=== PATIENT | female | born 1990 | race Caucasian/White ===

== ENCOUNTER 2016-11-26 15:37 | Observation (INO) ==
[2016-11-26 16:05] LABS: Bilirubin,Urine Negative (Negative); Blood,Urine Negative (Negative); Clarity,Urine Cloudy (Clear); Color,Urine Yellow (Yellow); Glucose,Urine (UA) Normal (Normal); Ketones,Urine Negative (Negative); Leukocyte Esterase,Urine Small (Negative); Nitrite,Urine Negative (Negative); PH,Urine 6.5 pH Units (5.0-8.0); Protein,Urine Negative (Neg-Trace); Specific Gravity,Urine 1.015 (1.010-1.025); Urobilinogen,Urine Normal (Normal)
[2016-11-26 16:08] LABS: Hyaline Casts,Urine None Seen per lpf (None-Few); RBC,Urine 0-3 per hpf (0-3)
[2016-11-26 16:24] LABS: Squamous Epithelial Cell,Urine Few per lpf (None-Few); WBC,Urine 0-3 per hpf (0-3)
[2016-11-26 16:25] LABS: Bacteria,Urine Few per hpf (None-Few)
--- NOTE | 2016-12-08 08:53 | OB/GYN Progress Note ---
Date of Encounter: 12/08/16 Time of Encounter: 15:45 - Assessment and Plan (1) 36 weeks gestation of Status: Acute (2) uterine contractions Status: Acute Pt with irregular uc's and no cervical change, will d/c home. Subjective - Subjective Principal diagnosis: contractions Interval history: Pt presents with c/o uc's, no vb or lof. + gfm. Objective - Exam FHR: category 1 Auscultation: bilateral: normal Abdomen: Present: gravid Comments: Irregular uc's on tocos - Labs Labs: Abnormal lab results Urine Clarity Cloudy (Clear) A 11/26/16 15:52 Ur Leukocyte Esterase Small (Negative) H 11/26/16 15:52 Ur Culture Indicated? YES (NO) A 11/26/16 15:52
== END 2016-11-26 16:45 | disposition home or self-care (01) ==
LOC: 1NENULAB
PROVIDERS: ADMIT Obstetrics & Gynecology; ATTEND Obstetrics & Gynecology

== ENCOUNTER → 2017-01-07 19:54 | Observation (INO) ==
--- NOTE | 2017-01-07 19:23 | OB/GYN Progress Note ---
Date of Encounter: 01/07/17 Time of Encounter: 19:19 - Assessment and Plan (1) Back pain affecting in third trimester Current Visit: Yes Status: Acute Pt remains 1 cm on serial cervical exam. Discharged to home with instructions on when to return or call provider. Pt verbalizes understanding (2) NST (non-stress test) reactive Current Visit: Yes Status: Acute baseline 125 Subjective - Subjective Interval history: 38+3 complains of back pain today. Woke this morning with intermittent back pain and has been increasing intensity while working today. Pt is transverse and remains transverse today by martin. Reports good movement , denies vaginal bleeding or leaking of fluid. Currently scheuled for primary C/ S 01/23 Objective - Vital Signs Vital Signs: Intake and Output 01/07/17 01/07/17 01/07/17 07:59 15:59 23:59 Other: Weight 106.8 kg Patient Weight 01/07/17 23:59 Weight 106.8 kg - Exam FHR: auscultation normal FHR comments: baseline 125 Auscultation: bilateral: normal Abdomen: Present: normal appearance, soft, gravid Cervical dilation: 1 per RN
== END | disposition home or self-care (01) ==
LOC: 1NENULAB
PROVIDERS: ADMIT Student in an Organized Health Care Education/Training Program; ATTEND Student in an Organized Health Care Education/Training Program

== ENCOUNTER → 2017-01-14 15:57 | Observation (INO) ==
--- NOTE | 2017-01-14 14:42 | Discharge Summary ---
Date of Encounter: 01/14/17 Time of Encounter: 14:44 - Discharge Diagnosis (1) Fall Priority: Primary Status: Acute Comments: Patient arrives to labor and delivery with c/o a fall onto her bottom at home. She states that immediately after the fall she c/o stabbing vaginal pain that is still present, but not as severe as before. She states after the fall, she did not feel movement, but has felt it since arrival to the hospital. She denies headache, visual disturbances, and epigastric pain. She also denies vaginal leaking, bleeding, and discharge. Monitor fetus and uterus for 2 hours, if reactive and no contractions begin, can discharge home with labor precautions. Qualifiers: Encounter type: initial encounter Qualified Code(s): W19.XXXA - Unspecified fall, initial encounter (2) 39 weeks gestation of Priority: Primary Status: Acute Comments: Meeting appropriate milestones F/U in the office with routine care and PRN (3) Transverse lie Priority: Secondary Status: Acute Comments: Fetus palpates transverse which patient states has been the case for several weeks. She is scheduled for a primary C/S for presentation on January 23, 2017. She was initially scheduled for January 16, 2017, but changed the date due to social reasons. Patient has had education at length discussing risks associated with transverse lie. Patient verbally acknowledges these risks, but wants to keep her scheduled primary C/S date with Dr Conner on January 23. She will be discharged home today due to not making cervical change and the fetus being reactive on monitor. POC per consult with Dr Naylor. Qualifiers: Fetus number: single or unspecified fetus Qualified Code(s): O32.2XX0 - Maternal care for transverse and oblique lie, not applicable or unspecified (4) NST (non-stress test) reactive Priority: Secondary Status: Acute Comments: Category I tracing FHTs 130-140 with moderate variability and 15 x 15 accels and no decels No contractions per toco, palpation, or patient report. - Discharge Medications Home Medications: Folic Acid 1 mg PO DAILY 11/26/16 [History] Vit/Iron Fumarate/FA [ Tablet] 1 tab PO DAILY 11/26/16 [History ] Allergies/Adverse Reactions: Allergies No Known Allergies Allergy (Verified 11/26/16 15:50) Date of admission: 01/14/17 13:39 Discharging clinician: Tracy Sandoval Anticipated date of discharge: 01/14/17 - Patient Status Disposition: Home, Self-Care Condition: Good Functional capacity at discharge: independent ambulation Overall status at discharge: patient is back to baseline - Discharge Instructions Follow Up With: Jennifer Huntley CNM [Advanced Practice Nurse] - - Diet and Activity Activity: increase activity as tolerated Diet: regular diet Hospital 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 Fetus palpates transverse. No contractions per toco, palpation, or patient report. FHTs 120's with moderate variability and 15x15 accels and no decels. SVE - 1.5/50/high soft posterior - Extremities Exam Extremities exam IM: Present: normal capillary refill, normal inspection, radial pulses palpable and symetrical - Neurological Exam Neurological exam: alert, oriented X3, reflexes normal - VTE Reasons for not Prescribing Prophylaxis: Treatment not Indicated - Low risk for VTE
== END | disposition home or self-care (01) ==
LOC: 1NENULAB

== ENCOUNTER 2017-01-15 07:45 | Inpatient (IN) ==
[2017-01-23] MEDS ORDERED: Metoclopramide 10 MG/2 ML VIAL IVP PRN ×2 (10:56→16:52)
[2017-01-23] MEDS ORDERED: Naloxone 0.4 MG/ML INJ IVP PRN (10:56)
[2017-01-23] MEDS ORDERED: Famotidine 20 MG/2 ML VIAL IVP PRN (10:56)
[2017-01-23] MEDS ORDERED: CeFAZolin Pre 2,000 MG/100 ML 2,000 MG/100 ML BAG IVPB ONE (10:59)
[2017-01-23] MEDS ORDERED: Ringers Solution, Lactated 1,000 ML IVC ONE (10:59)
[2017-01-23] MEDS ORDERED: Ringers Solution, Lactated 1,000 ML IVC SCH ×2 (11:00→16:52)
[2017-01-23 11:10] LABS: Basophils % 0.2 %; Eosinophils # 0.1 K/mcL (0.0-0.6); Eosinophils % 1.1 %; Hematocrit 34.6 % (35.3-44.9); Hemoglobin 11.8 g/dL (11.5-15.4); Immature Granulocytes % 0.8 % (0-4); Lymphocytes # 1.4 K/mcL (0.6-4.6); Lymphocytes % 16.8 %; Mean Corpuscular HGB Conc 34.1 g/dL (31.6-35.5); Mean Corpuscular Hemoglobin 29.7 pg (28.0-33.3); Mean Corpuscular Volume 87.2 fL (83.0-100.0); Mean Platelet Volume 12.6 fL (9.4-12.4); Monocytes # 0.5 K/mcL (0.0-1.3); Monocytes % 6.5 %; Neutrophils # 6.2 K/mcL (1.6-8.9); Platelet Count 156 K/mcL (140-400); Red Blood Count 3.97 M/mcL (3.82-4.97); Red Cell Distribution Width 13.4 % (11.5-14.5); Segmented Neutrophils % 74.6 %
[2017-01-23] MEDS ORDERED: *HR* FentaNYL (PF) 100 MCG/2 ML VIAL ONE (11:39)
[2017-01-23] MEDS ORDERED: EPHEDrine 50 MG/ML VIAL ONE (11:39)
[2017-01-23] MEDS ORDERED: *HR* Morphine Sulfate/PF 5 MG/10 ML AMPUL ONE (11:39)
[2017-01-23] MEDS ORDERED: *HR* Oxytocin 10 UNIT/ML VIAL IM ONE (11:45)
--- NOTE | 2017-01-23 11:48 | Anesthesia Evaluation PreOp ---
Date of Encounter: 01/23/17 Time of Encounter: 11:44 - Past History Planned Operation: Cardiac History: Denies any Significant Hx Pulmonary History: Other (Inactive histplasmosis) CLIENT CARE MANAGER History: Denies Any Significant HX Other Medical History: Denies Any Significant HX Anesthesia History: No Prior Anesthetic Complications, Past Anesthesia (Nasal Fracture) : Yes () Test: Positive Alcohol Use: none Drug use: none Medications and Allergies Folic Acid 1 mg PO DAILY 11/26/16 [History] Vit/Iron Fumarate/FA [ Tablet] 1 tab PO DAILY 11/26/16 [History ] Allergies No Known Allergies Allergy (Verified 11/26/16 15:50) - Meds/Allergy Pre-op Review Medications Reviewed: Yes Allergies Reviewed: Yes Beta Blockers on Current Med List: No Anesthesia Results - Labs 01/23/17 10:47 Anesthesia Exam O2 Sat Height 1.75 m Weight 103.6 kg BP-124/72 P-88 R-16 Height: 5'9'' Weight: 228# NPO (# of Hours): > 8 hrs Pain Scale: 0 Pain Scale Used: Numeric (1 - 10) - HEENT Pupil (Motor): Pupils equal, EOMI Mallampati: I Teeth: Normal Oral Opening: Greater than 3 - CLIENT CARE MANAGER LOC: Oriented CLIENT CARE MANAGER Motor: Normal RUE, Normal LUE, Normal RLE, Normal LLE, Normal Face CLIENT CARE MANAGER Sensory: Normal: RUE, LUE, RLE, LLE, Face - Cardiac Rhythm: Regular Murmur: None JVD: No Carotid Bruit: No - Pulmonary Breath Sounds: bilateral Clear Respiratory Effort: Symmetrical Anesthesia Assess/Plan ASA Score: 2 Modified Venkatesh Scale for Level of Consciousness: Cooperative, oriented, and tranquil Anesthetic Plan: General Autologous Blood: Yes Monitoring Plan: Standard Monitors Recovery Plan: PACU
--- NOTE | 2017-01-23 12:04 | OB/GYN History & Physical ---
Date of Encounter: 01/23/17 Time of Encounter: 12:02 Assessment and Plan (1) 40 weeks gestation of Current visit: Yes Status: Acute (2) Transverse lie Current visit: Yes Status: Acute Anticipate CS with Dr. Conner Qualifiers: Fetus number: single or unspecified fetus Qualified Code(s): O32.2XX0 - Maternal care for transverse and oblique lie, not applicable or unspecified History of Present Illness Chief complaint: for transverse lie on presentation HPI: Ms. Gonzales is a 26 year old female, , 40w GA, presents for CS with Dr. Conner due to transverse lie. Patient reports movement, no vaginal discharge. Labs: Negative: GBS Not available: HIV, syph, [place], Chlam Immune: Hep B, VZV Past Med Surg Social Fam HX - Past Medical History Medical history: other Psychiatric history: no psych history - Social History Smoking Status: Never smoker Smokeless Tobacco Status: No Alcohol use: none Drug use: none - Family History Father Living Status: Still Living Hx Family Cardiac Disorders: Yes Hx Family Respiratory Disorders: No Hx Family Cancer: Yes (COLON CANCER) Hx Family GI Disorders: No Hx Family Endocrine Disorder: No Hx Family Neuromuscular Disorders: No Hx Family Neurologic Disorders: No Hx Family HEENT Disorders: No Hx Family Autoimmune Disorders: No Obstetrical History - Pregnancies : 5 Medications and Allergies Folic Acid 1 mg PO DAILY 11/26/16 [History] Vit/Iron Fumarate/FA [ Tablet] 1 tab PO DAILY 11/26/16 [History ] Allergies No Known Allergies Allergy (Verified 11/26/16 15:50) Exam - Constitutional Constitutional: well developed, well nourished - HEENT HEENT: Mucus Membranes Moist - Neck Neck exam: full ROM - Lungs Respiratory exam: CTAB - Cardiovascular Cardiovascular exam: +S1, +S2 - Abdomen Abdomen: Present: bowel sounds normal - Extremities Extremities exam: warm - Vagina Vagina: Present: normal moisture - Uterus Uterus exam: Present: enlarged Results Result Diagrams: 01/23/17 10:47 Abnormal lab results Hct 34.6 % (35.3-44.9) L 01/23/17 10:47 MPV 12.6 fL (9.4-12.4) H 01/23/17 10:47 All other labs normal.
[2017-01-23] MEDS ORDERED: *HR* HYDROmorphone (PF) 1 MG/ML SYRINGE IVP PRN ×2 (12:13→16:52)
[2017-01-23] MEDS ORDERED: Ringers Solution, Lactated 2,000 ML ONE (12:44)
--- NOTE | 2017-01-23 13:38 | OB/GYN Procedure Note ---
Section - Date of procedure: 01/23/17 Preop diagnosis: breech Procedure: section, primary low transverse Surgeon: Yung Conner Estimated blood loss (cc): 300 Anesthesiologist: Mateus Somers Drag Sawyer: Madi Cannon Anesthesia Type: Spinal section complications: none Disposition: PACU - (s) A Infant Delivery Date: 01/23/17 Delivery Time: 12:48 Presentation: breech Gender: Male Gram Weight: 4.215 kg at 1 minute: 8 at 5 minutes: 9 Placenta: spontaneous Cord: 3 umbilical vessels - Narrative Narrative: 18-year-old 2 para 1 female presents her 9+ weeks gestation presents with breech infant. This has been breech over the last several weeks we discussed with patient possible external podalic version she declined this. We did do ultrasonometer Objective section and confirmed breech. After discussed with patient options she desired primary section was wearing operative risks. Description of procedure patient was taken operating room where spinal anesthesia was administered. She is prepped draped in usual sterile fashion bladder drained of clear urine. Scalp was used to make Pfannenstiel skin incision was sharply taken down the rectus fascia. Rectus fascia was incised midline and rectus fascia was extended bilaterally. Rectus muscles were divided midline peritoneum was entered bluntly. Peritoneal incision was extended. Bladder blade was placed and bladder flap was dropped on the uterine segment. Scalpel was used to make a low transverse uterine incision [place] ruptured clear fluid incision was extended bluntly bilaterally. Infant was delivered from double footling breech presentation without difficulty. weight was found to be 9 lbs. 5 oz. with Apgars of 8 at 1 minute and 9 at 5 minutes. Cord was clamped cut and was then nurse personnel who were in attendance. Placenta was delivered manually and uterine cavity was massaged free of all residual tissue. Uterus was closed 0 Vicryl running lock stitch. Several [id number] stitches were taken to obtain hemostasis. Irrigation was performed hemostasis was confirmed. Fascia was closed 0 Vicryl running manner. After closure the fascia again irrigation was performed hemostasis was ensured. Skin edges reapproximated with 4-0 Vicryl. All sponge counts counts correct patient was taken recovery in good condition.
[2017-01-23] MEDS ORDERED: Oxytocin 20 units/ LR 1000 mL 20 UNIT/1,000 ML BAG IVC ONE (15:15)
--- NOTE | 2017-01-23 15:50 | Anesthesia Evaluation Post Op ---
Date of Encounter: 01/23/17 Time of Encounter: 15:45 - Vital Signs Vital Signs: 3 Vital Signs Time 1545 BP 119/68 Pulse 68 Resp 16 O2 Sat 100 RA - Lungs Lungs: Clear Ascult./Percussion - Airway Airway: Non-obstructed - Cardiovascular Regular Rate - Mental Status Mental Status: Alert & Oriented, Answers Appropriately - Pain Pain Scale: 6 (dilaudid given) Pain Scale used: Numeric (1 - 10) - Nausea Vomiting Nausea Vomiting: Not Present - Hydration Hydration: NPO Notes: 01/23/17 15:49 patient moving legs well - Discharge PostOp Status: Transfer Patient to floor
[2017-01-23] MEDS ORDERED: Ondansetron 4 MG/2 ML VIAL IVP PRN (16:52)
[2017-01-23] MEDS ORDERED: *HR* Morphine 2 MG/ML SYRINGE IVP PRN (16:52)
[2017-01-23] MEDS ORDERED: Simethicone 80 MG TAB.CHEW PO PRN (16:52)
[2017-01-23] MEDS ORDERED: Sennosides 8.6 MG TABLET PO PRN (16:52)
[2017-01-23] MEDS ORDERED: Rho Immune Globulin 1,500 UNIT SYRINGE IM PRN (16:52)
[2017-01-23] MEDS ORDERED: Oxytocin 20 units/ LR 1000 mL 20 UNIT/1,000 ML BAG IVC SCH (16:52)
[2017-01-24] MEDS: *HR* OxyCODONE/APAP 5/325 TABLET PO PRN ×4 (05:18→22:54)
[2017-01-24] MEDS ORDERED: *HR* Phenylephrine 10 MG/ML VIAL ONE (06:17)
[2017-01-24] MEDS: Prenatal Vit/FA 1 EACH TABLET PO SCH (08:13)
[2017-01-24 08:32] LABS: Basophils % 0.4 %; Eosinophils # 0.1 K/mcL (0.0-0.6); Eosinophils % 1.5 %; Hematocrit 29.6 % (35.3-44.9); Immature Granulocytes % 0.4 % (0-4); Lymphocytes # 1.3 K/mcL (0.6-4.6); Lymphocytes % 17.1 %; Mean Corpuscular HGB Conc 34.1 g/dL (31.6-35.5); Mean Corpuscular Hemoglobin 30.2 pg (28.0-33.3); Mean Corpuscular Volume 88.6 fL (83.0-100.0); Mean Platelet Volume 12.6 fL (9.4-12.4); Monocytes # 0.7 K/mcL (0.0-1.3); Monocytes % 8.7 %; Neutrophils # 5.6 K/mcL (1.6-8.9); Platelet Count 106 K/mcL (140-400); Red Blood Count 3.34 M/mcL (3.82-4.97); Red Cell Distribution Width 13.6 % (11.5-14.5); Segmented Neutrophils % 71.9 %
[2017-01-24 08:42] LABS: Hemoglobin 10.1 g/dL (11.5-15.4)
--- NOTE | 2017-01-24 08:55 | OB/GYN Progress Note ---
Date of Encounter: 01/24/17 Time of Encounter: 08:53 - Assessment and Plan (1) delivery delivered Current Visit: Yes Status: Acute Pt doing well. Tolerating clear liquids, ambulated, pain well managed, anticipate DC tomorrow. Did have decrease in platelets. will redraw at 1800 Subjective - Subjective Patient reports: voiding normally, pain well controlled, ambulating normally [place]: doing well Objective - Vital Signs Latest vital signs: Vital Signs Temp Pulse Resp BP Pulse Ox 01/24/17 08:20 16 01/24/17 03:10 98 F 87 16 92/52 98 01/23/17 23:43 97.5 F L 75 16 110/70 97 01/23/17 19:00 98.0 F 64 16 117/75 97 01/23/17 16:30 97.9 F 65 16 94/53 96 01/23/17 16:00 98.2 F 62 16 103/68 97 Intake and Output 01/23/17 01/24/17 01/24/17 23:59 07:59 15:59 Output Total 125 / 125 700 / 700 750 / 750 Balance -125 / -125 -700 / -700 -750 / -750 Output: Urine 750 / 750 Catheter 125 / 125 700 / 700 Other: Weight 101.6 kg - Exam Lungs: bilateral: normal Chest: Normal S1, Normal S2 Extremities: Present: normal, tenderness Abdomen: Present: soft, gravid Incision: Present: normal Uterus: Present: normal - Labs Labs: Laboratory Results - last 24 hr 01/23/17 01/24/17 10:47 07:35 WBC 8.3 7.8 RBC 3.97 3.34 L Hgb 11.8 10.1 L D Hct 34.6 L 29.6 L MCV 87.2 88.6 MCH 29.7 30.2 MCHC 34.1 34.1 RDW 13.4 13.6 Plt Count 156 106 L MPV 12.6 H 12.6 H Immature Gran % 0.8 0.4 Seg Neutrophils % 74.6 71.9 Lymphocytes % 16.8 17.1 Monocytes % 6.5 8.7 Eosinophils % 1.1 1.5 Basophils % 0.2 0.4 Neutrophils # 6.2 5.6 Lymphocytes # 1.4 1.3 Monocytes # 0.5 0.7 Eosinophils # 0.1 0.1 Basophils # 0.0 0.0
[2017-01-24] MEDS: Ibuprofen 600 MG TABLET PO PRN ×2 (16:44→22:54)
[2017-01-24 18:11] LABS: Basophils % 0.2 %; Eosinophils # 0.2 K/mcL (0.0-0.6); Hematocrit 32.4 % (35.3-44.9); Hemoglobin 10.8 g/dL (11.5-15.4); Immature Granulocytes % 0.6 % (0-4); Lymphocytes # 1.6 K/mcL (0.6-4.6); Lymphocytes % 18.7 %; Mean Corpuscular HGB Conc 33.3 g/dL (31.6-35.5); Mean Corpuscular Hemoglobin 29.5 pg (28.0-33.3); Mean Corpuscular Volume 88.5 fL (83.0-100.0); Mean Platelet Volume 12.3 fL (9.4-12.4); Monocytes # 0.7 K/mcL (0.0-1.3); Monocytes % 7.9 %; Neutrophils # 5.9 K/mcL (1.6-8.9); Platelet Count 141 K/mcL (140-400); Red Blood Count 3.66 M/mcL (3.82-4.97); Red Cell Distribution Width 13.6 % (11.5-14.5); Segmented Neutrophils % 70.6 %
[2017-01-25] MEDS: Prenatal Vit/FA 1 EACH TABLET PO SCH (08:20)
[2017-01-25] MEDS: Ibuprofen 600 MG TABLET PO PRN (08:20)
[2017-01-25] MEDS: *HR* OxyCODONE/APAP 5/325 TABLET PO PRN ×2 (08:21→12:36)
[2017-01-25 08:27] VITALS: BP 108/70
--- NOTE | 2017-01-25 08:43 | Discharge Summary ---
Date of Encounter: 01/25/17 Time of Encounter: 08:40 - Discharge Diagnosis (1) Status post primary low transverse section Priority: Primary Status: Acute Comments: Continue routine postop/ care discharge home today follow up in [address] Conner (2) Breast feeding status of mother Priority: Secondary Status: Acute - Discharge Medications Prescriptions: OxyCODONE/APAP 5/325 [Percocet 5/325 MG] 1 each PO Q4HR PRN #30 tab PRN Reason: Moderate pain 4-6 Ibuprofen [Motrin] 600 mg PO Q6HR PRN #60 tab PRN Reason: Cramping Docusate [Colace] 100 mg PO BID #60 Home Medications: Vit/Iron Fumarate/FA [ Tablet] 1 tab PO DAILY 11/26/16 [History ] Docusate [Colace] 100 mg PO BID #60 01/25/17 [Rx] Ibuprofen [Motrin] 600 mg PO Q6HR PRN #60 tab 01/25/17 [Rx] OxyCODONE/APAP 5/325 [Percocet 5/325 MG] 1 each PO Q4HR PRN #30 tab 01/25/17 [Rx ] Vit/FA 1 each PO DAILY tab 01/25/17 [Rx] Allergies/Adverse Reactions: Allergies No Known Allergies Allergy (Verified 11/26/16 15:50) Data Procedures and tests throughout hospitalization: Laboratory Tests 01/23/17 01/24/17 01/24/17 10:47 07:35 18:01 WBC 8.3 7.8 8.3 RBC 3.97 3.34 L 3.66 L Hgb 11.8 10.1 L D 10.8 L Hct 34.6 L 29.6 L 32.4 L MCV 87.2 88.6 88.5 MCH 29.7 30.2 29.5 MCHC 34.1 34.1 33.3 RDW 13.4 13.6 13.6 Plt Count 156 106 L 141 MPV 12.6 H 12.6 H 12.3 Immature Gran % 0.8 0.4 0.6 Seg Neutrophils % 74.6 71.9 70.6 Lymphocytes % 16.8 17.1 18.7 Monocytes % 6.5 8.7 7.9 Eosinophils % 1.1 1.5 2.0 Basophils % 0.2 0.4 0.2 Neutrophils # 6.2 5.6 5.9 Lymphocytes # 1.4 1.3 1.6 Monocytes # 0.5 0.7 0.7 Eosinophils # 0.1 0.1 0.2 Basophils # 0.0 0.0 0.0 Labs on day of discharge: Labs from last 24 hours 01/24/17 01/24/17 18:01 07:35 WBC 8.3 7.8 RBC 3.66 L 3.34 L Hgb 10.8 L 10.1 L D Hct 32.4 L 29.6 L MCV 88.5 88.6 MCH 29.5 30.2 MCHC 33.3 34.1 RDW 13.6 13.6 Plt Count 141 106 L MPV 12.3 12.6 H Immature Gran % 0.6 0.4 Seg Neutrophils % 70.6 71.9 Lymphocytes % 18.7 17.1 Monocytes % 7.9 8.7 Eosinophils % 2.0 1.5 Basophils % 0.2 0.4 Neutrophils # 5.9 5.6 Lymphocytes # 1.6 1.3 Monocytes # 0.7 0.7 Eosinophils # 0.2 0.1 Basophils # 0.0 0.0 Date of admission: 01/23/17 10:16 Primary care physician: PCP NONE Discharging clinician: Amy Lara Anticipated date of discharge: 01/25/17 - Patient Status Disposition: Home, Self-Care Condition: Good Functional capacity at discharge: independent ambulation - Discharge Instructions Follow Up With: NONE,PCP [Primary Care Provider] - Yung Conner MD [Partnered Physician] - - Diet and Activity Activity: increase activity as tolerated Diet: regular diet Hospital Course Procedures: [facility] report reviewed Reason for admission: section (for breech presentation) Delivery: section Episiotomy: none Laceration: none Other procedures: none complications: none Discharge diagnosis: IUP at term delivered baby: male (breast feeding) Time Attestation: Total time spent providing and/or coordinating discharge services: Time Spent: Less than 30 minutes - VTE Documentation of Mechanical Device: Intermittent pneumatic compression device Exam - Constitutional Vitals: Temp Pulse Resp BP Pulse Ox 98.7 F 70 18 108/70 98 01/25/17 08:27 01/25/17 08:27 01/25/17 08:27 01/25/17 08:27 01/25/17 08:27 General appearance IM: A&O X 3, pleasant, answers questions appropriately - Respiratory Respiratory exam: Present: CTAB - Cardiovascular Cardiovascular exam IM: Present: RRR, +S1, +S2 - GI/Abdominal GI/Abdominal exam IM: normal bowel sounds Incision: normal, dry, intact, dressed (steri strips) - Uterine Tone: Firm Uterus Position: 2 Fingers Below Umbilicus, Midline - Extremities Exam Extremities exam IM: Present: full ROM, normal capillary refill, normal inspection - Neurological Exam Neurological exam: alert, oriented X3, reflexes normal
== END 2017-01-25 13:36 | disposition home or self-care (01) | DRG 540 ==
LOC: 1NENULAB 01-23 10:16 → 1NENUOBS 01-23 16:15
PROVIDERS: ADMIT Obstetrics & Gynecology; ATTEND Obstetrics & Gynecology